=== PATIENT | female | born 1940 | race Hispanic/Latino ===

== ENCOUNTER 2017-05-27 11:47 | Outpatient (CLI) | payer MEDICARE, OTHER ==
--- NOTE | 2017-05-27 12:14 | XRay Report ---
ROUTINE CHEST, TWO VIEWS: HISTORY: Disorder of bone. The trachea, heart, mediastinal contour, lung ballard and bony thorax are unremarkable. Left mastectomy changes and left axillary lymph node dissection changes are noted. No significant change since 07/09/13. IMPRESSION: Unremarkable chest x-ray.
== END 2017-05-27 11:48 | disposition home or self-care (01) ==
LOC: SPVIMAG 11:47
PROVIDERS: ATTEND Internal Medicine Hematology & Oncology
DX: M89.9 Disorder of bone, unspecified (principal); C50.512 Malignant neoplasm of lower-outer quadrant of left female breast; Z90.12 Acquired absence of left breast and nipple
CPT/HCPCS: 71046